=== PATIENT | female | born 1995 | race African-American/Black ===

== ENCOUNTER 2017-04-02 10:00 | Emergency (ER) | payer SELFPAY ==
[~2017-04-02] VITALS: Ht 170.2 cm; Wt 97.6 kg
[~2017-04-02 10:00] MED LIST: ADVAIR DISK1 IN; AZITHROMYCIN500 MG PO; CEPHALEXIN500 M1 OR; COLACE100 MG PO; EPIPEN0.3 MG IM; MEDDOSEPAK OR; PRENATAL1 TA1 PO; PROAIR HFA IN; PROVENTIL IN; PROVENTIL INH17 GM IN; SINGULAIR OR; STEROID; ZOFRAN4 M1 PO
[2017-04-02 11:19] VITALS: BP 121/66
== END 2017-04-02 11:19 | disposition home or self-care (01) | DRG 923 ==
LOC: ED 10:00
DX: T78.1XXA Other adverse food reactions, not elsewhere classified, initial encounter (principal); R42 Dizziness and giddiness; X58.XXXA Exposure to other specified factors, initial encounter

== ENCOUNTER 2017-10-14 14:19 | Emergency (ER) | payer SELFPAY ==
[~2017-10-14] VITALS: Ht 170.2 cm; Wt 98.6 kg
[2017-10-14 15:50] LABS: INFLUENZA A NONE DETECTED (NONE DETECT); INFLUENZA B NONE DETECTED (NONE DETECT)
[2017-10-14] MEDS ORDERED: ZITHROMAX500 MG PO (15:56)
[2017-10-14 16:13] VITALS: BP 125/73
== END 2017-10-14 16:13 | disposition home or self-care (01) | DRG 153 ==
LOC: ED 14:19
DX: J02.0 Streptococcal pharyngitis (principal)

== ENCOUNTER 2017-11-06 22:14 | Emergency (ER) | payer SELFPAY ==
[~2017-11-06] VITALS: Ht 170.2 cm; Wt 102.0 kg
[~2017-11-06 22:14] MED LIST changes: +ZITHROMAX500 MG PO
[2017-11-06] MEDS ORDERED: CLINDAMYCIN300 M1 PO ×2 (23:25→23:31)
[2017-11-06 23:40] VITALS: BP 127/69
== END 2017-11-06 23:40 | disposition home or self-care (01) | DRG 153 ==
LOC: ED 22:14
DX: J02.0 Streptococcal pharyngitis (principal)

== ENCOUNTER 2018-03-21 23:17 | Emergency (ER) | payer OTHER ==
[~2018-03-21] VITALS: Ht 170.2 cm; Wt 101.0 kg
[~2018-03-21 23:17] MED LIST changes: +CLINDAMYCIN300 M1 PO
[2018-03-21] MEDS ORDERED: PRE-NATAL PO (23:30)
[2018-03-22 00:04] LABS: HEMATOCRIT 28.6 % (37.0-47.0); HEMOGLOBIN 9.4 g/dl (12.0-16.0); IMMATURE GRANULOCYTES 0.3 % (0.0-5.0); MEAN CELL VOLUME 81.9 fL CALC (80.0-100.0); MEAN CORPUSCULAR HGB 26.9 pG CALC (26.0-32.0); MEAN CORPUSCULAR HGB CONC 32.9 g/L CALC (32.0-36.0); NEUT# 5.46 thou/uL (2.00-7.15); RED BLOOD COUNT 3.49 mill/uL (4.20-5.60); RED CELL DISTRI WIDTH 14.2 % (11.5-15.5)
[2018-03-22 00:16] LABS: ALBUMIN 3.5 g/dL (3.2-5.0); ALKALINE PHOSPHATASE 55 u/l (38-126); ANION GAP 13 (6-22 (CALC)); BILIRUBIN, TOTAL 0.3 mg/dL (0.0-1.4); BUN 5 mg/dL (7-17); BUN/CREATININE RATIO 11 (12-20 (CALC)); CARBON DIOXIDE 23 mmol/l (22-30); CHLORIDE 105 mmol/l (95-108); CREATININE 0.5 mg/dL (0.5-1.0); GFR > 60 ML/MIN (>=60 (CALC)); GFR FOR AFR.AMER. > 60 ML/MIN (>=60 (CALC)); POTASSIUM 3.1 mmol/l (3.5-5.1); SGOT/AST 12 u/l (14-36); SODIUM 138 mmol/l (137-146)
[2018-03-22 00:20] LABS: URINE BILIRUBIN - DIPSTICK NEGATIVE (NEGATIVE); URINE BLOOD DIPSTICK NEGATIVE (NEGATIVE); URINE COLOR YELLOW; URINE GLUCOSE - DIPSTICK NEGATIVE (NEGATIVE); URINE KETONE NEGATIVE (NEGATIVE); URINE LEUK ESTERASE NEGATIVE (NEGATIVE); URINE NITRITE - DIPSTICK NEGATIVE (Negative); URINE PH 6.5 (4.5-8.0); URINE PROTEIN - DIPSTICK NEGATIVE (NEG-TRACE)
[2018-03-22 00:22] LABS: URINE CLARITY CLEAR
[2018-03-22 01:00] LABS: BETA-HCG, QUANT(RESULT NUMBER) 44875 mIU/mL
[2018-03-22 01:26] VITALS: BP 129/83
== END 2018-03-22 01:29 | disposition home or self-care (01) ==
LOC: ED 23:17
PROVIDERS: Family Medicine
DX: O46.92 Antepartum hemorrhage, unspecified, second trimester (principal); O99.512 Diseases of the respiratory system complicating pregnancy, second trimester; J45.909 Unspecified asthma, uncomplicated; Z3A.16 16 weeks gestation of pregnancy

== ENCOUNTER 2018-04-18 04:22 | Emergency (ER) | payer OTHER ==
[~2018-04-18] VITALS: Ht 170.2 cm; Wt 100.4 kg
[~2018-04-18 04:22] MED LIST changes: +PRE-NATAL PO
[2018-04-18] MEDS ORDERED: ZPAK PO (04:49)
[2018-04-18 04:53] VITALS: BP 131/76
== END 2018-04-18 04:53 | disposition home or self-care (01) ==
LOC: ED 04:22
DX: O99.519 Diseases of the respiratory system complicating pregnancy, unspecified trimester (principal); J02.9 Acute pharyngitis, unspecified; J45.909 Unspecified asthma, uncomplicated; Z3A.00 Weeks of gestation of pregnancy not specified; R05 Cough; R09.81 Nasal congestion; R50.9 Fever, unspecified

== ENCOUNTER 2019-01-11 08:35 | Emergency (ER) | payer OTHER ==
[~2019-01-11] VITALS: Ht 170.2 cm; Wt 90.0 kg
[~2019-01-11 08:35] MED LIST changes: +ZPAK PO
[2019-01-11 09:16] LABS: HEMOGLOBIN 10.9 g/dl (12.0-16.0); IMMATURE GRANULOCYTES 0.3 % (0.0-5.0); MEAN CELL VOLUME 84.6 fL CALC (80.0-100.0); MEAN CORPUSCULAR HGB 27.1 pG CALC (26.0-32.0); MEAN CORPUSCULAR HGB CONC 32.1 g/L CALC (32.0-36.0); NEUT# 4.27 thou/uL (2.00-7.15); RED BLOOD COUNT 4.02 mill/uL (4.20-5.60); RED CELL DISTRI WIDTH 15.1 % (11.5-15.5)
[2019-01-11 09:25] LABS: URINE BILIRUBIN - DIPSTICK NEGATIVE (NEGATIVE); URINE BLOOD DIPSTICK NEGATIVE (NEGATIVE); URINE COLOR YELLOW; URINE GLUCOSE - DIPSTICK NEGATIVE (NEGATIVE); URINE KETONE NEGATIVE (NEGATIVE); URINE LEUK ESTERASE NEGATIVE (NEGATIVE); URINE NITRITE - DIPSTICK NEGATIVE (Negative); URINE PROTEIN - DIPSTICK NEGATIVE (NEG-TRACE); URINE SPECIFIC GRAVITY 1.015
[2019-01-11 09:25] LABS: ALBUMIN 4.1 g/dL (3.2-5.0); ALKALINE PHOSPHATASE 67 u/l (38-126); BUN 9 mg/dL (7-17); BUN/CREATININE RATIO 17 (12-20 (CALC)); CARBON DIOXIDE 25 mmol/l (22-30); CHLORIDE 107 mmol/l (95-108); CREATININE 0.6 mg/dL (0.5-1.0); GFR > 60 ML/MIN (>=60 (CALC)); GFR FOR AFR.AMER. > 60 ML/MIN (>=60 (CALC)); LIPASE 88 u/l (23-300); SGOT/AST 18 u/l (14-36); SODIUM 139 mmol/l (137-146); TOTAL PROTEIN 7.8 g/dL (6.3-8.2)
[2019-01-11 09:27] LABS: ANION GAP 11 (6-22 (CALC)); BILIRUBIN, TOTAL 1.3 mg/dL (0.0-1.4); POTASSIUM 4.1 mmol/l (3.5-5.1)
[2019-01-11 11:50] VITALS: BP 121/64
== END 2019-01-11 11:50 | disposition home or self-care (01) ==
LOC: ED 08:35
PROVIDERS: Family Medicine
DX: O26.899 Other specified pregnancy related conditions, unspecified trimester (principal); R10.31 Right lower quadrant pain; Z3A.00 Weeks of gestation of pregnancy not specified

== ENCOUNTER 2019-02-02 07:53 | Emergency (ER) | payer OTHER ==
[~2019-02-02] VITALS: Ht 170.2 cm; Wt 70.0 kg
[2019-02-02 08:34] LABS: HEMATOCRIT 33.3 % (37.0-47.0); HEMOGLOBIN 10.6 g/dl (12.0-16.0); IMMATURE GRANULOCYTES 0.4 % (0.0-5.0); MEAN CELL VOLUME 85.6 fL CALC (80.0-100.0); MEAN CORPUSCULAR HGB 27.2 pG CALC (26.0-32.0); MEAN CORPUSCULAR HGB CONC 31.8 g/L CALC (32.0-36.0); NEUT# 5.91 thou/uL (2.00-7.15); RED BLOOD COUNT 3.89 mill/uL (4.20-5.60); RED CELL DISTRI WIDTH 14.7 % (11.5-15.5)
[2019-02-02 08:34] LABS: URINE BILIRUBIN - DIPSTICK NEGATIVE (NEGATIVE); URINE BLOOD DIPSTICK NEGATIVE (NEGATIVE); URINE COLOR YELLOW; URINE GLUCOSE - DIPSTICK NEGATIVE (NEGATIVE); URINE KETONE NEGATIVE (NEGATIVE); URINE LEUK ESTERASE NEGATIVE (NEGATIVE); URINE NITRITE - DIPSTICK NEGATIVE (Negative); URINE PH 6.5 (4.5-8.0); URINE PROTEIN - DIPSTICK NEGATIVE (NEG-TRACE); URINE SPECIFIC GRAVITY 1.015
[2019-02-02 08:49] LABS: ANION GAP 10 (6-22 (CALC)); BUN 7 mg/dL (7-17); BUN/CREATININE RATIO 13 (12-20 (CALC)); CARBON DIOXIDE 27 mmol/l (22-30); CHLORIDE 104 mmol/l (95-108); CREATININE 0.5 mg/dL (0.5-1.0); GFR > 60 ML/MIN (>=60 (CALC)); GFR FOR AFR.AMER. > 60 ML/MIN (>=60 (CALC)); POTASSIUM 3.7 mmol/l (3.5-5.1); SODIUM 138 mmol/l (137-146)
[2019-02-02 09:08] LABS: BETA-HCG, QUANT(RESULT NUMBER) > 15000 mIU/mL
[2019-02-02 11:40] VITALS: BP 138/60
== END 2019-02-02 11:40 | disposition home or self-care (01) ==
LOC: ED 07:53
PROVIDERS: Family Medicine
DX: O26.851 Spotting complicating pregnancy, first trimester (principal); Z3A.01 Less than 8 weeks gestation of pregnancy; R10.2 Pelvic and perineal pain; R10.32 Left lower quadrant pain
CPT/HCPCS: J2790

== ENCOUNTER 2019-03-05 02:00 | Emergency (ER) | payer OTHER ==
[~2019-03-05] VITALS: Ht 170.2 cm; Wt 95.0 kg
[2019-03-05 02:37] LABS: HEMATOCRIT 33.4 % (37.0-47.0); IMMATURE GRANULOCYTES 0.3 % (0.0-5.0); MEAN CELL VOLUME 84.6 fL CALC (80.0-100.0); MEAN CORPUSCULAR HGB 27.8 pG CALC (26.0-32.0); MEAN CORPUSCULAR HGB CONC 32.9 g/L CALC (32.0-36.0); RED BLOOD COUNT 3.95 mill/uL (4.20-5.60); RED CELL DISTRI WIDTH 13.6 % (11.5-15.5)
[2019-03-05 02:38] LABS: URINE BILIRUBIN - DIPSTICK NEGATIVE (NEGATIVE); URINE BLOOD DIPSTICK NEGATIVE (NEGATIVE); URINE COLOR YELLOW; URINE GLUCOSE - DIPSTICK NEGATIVE (NEGATIVE); URINE KETONE NEGATIVE (NEGATIVE); URINE LEUK ESTERASE NEGATIVE (NEGATIVE); URINE NITRITE - DIPSTICK NEGATIVE (Negative); URINE PROTEIN - DIPSTICK NEGATIVE (NEG-TRACE); URINE SPECIFIC GRAVITY >=1.030
[2019-03-05 02:49] LABS: ALBUMIN 4.1 g/dL (3.2-5.0); ALKALINE PHOSPHATASE 63 u/l (38-126); ANION GAP 14 (6-22 (CALC)); BUN 7 mg/dL (7-17); BUN/CREATININE RATIO 17 (12-20 (CALC)); CARBON DIOXIDE 23 mmol/l (22-30); CHLORIDE 105 mmol/l (95-108); CREATININE 0.4 mg/dL (0.5-1.0); GFR > 60 ML/MIN (>=60 (CALC)); GFR FOR AFR.AMER. > 60 ML/MIN (>=60 (CALC)); POTASSIUM 3.6 mmol/l (3.5-5.1); SGOT/AST 16 u/l (14-36); SODIUM 138 mmol/l (137-146); TOTAL PROTEIN 7.8 g/dL (6.3-8.2)
[2019-03-05 02:58] LABS: BILIRUBIN, TOTAL 0.6 mg/dL (0.0-1.4)
[2019-03-05 03:31] LABS: BETA-HCG, QUANT(RESULT NUMBER) 100220 mIU/mL
[2019-03-05 03:56] VITALS: BP 122/67
== END 2019-03-05 03:56 | disposition home or self-care (01) ==
LOC: ED 02:00
PROVIDERS: Family Medicine
DX: O26.899 Other specified pregnancy related conditions, unspecified trimester (principal); R10.31 Right lower quadrant pain; R10.32 Left lower quadrant pain; Z3A.00 Weeks of gestation of pregnancy not specified

== ENCOUNTER 2019-03-07 19:49 | Emergency (ER) | payer OTHER ==
[~2019-03-07] VITALS: Ht 170.2 cm; Wt 90.0 kg
[2019-03-07 19:52] VITALS: BP 129/70
[2019-03-07] MEDS ORDERED: PRENATAL1 TA1 PO (19:58)
[2019-03-07] MEDS ORDERED: IRON325 M1 PO (19:58)
== END 2019-03-07 20:40 | disposition home or self-care (01) | DRG 833 ==
LOC: ED 19:49
DX: O9A.212 Injury, poisoning and certain other consequences of external causes complicating pregnancy, second trimester (principal); S09.8XXA Other specified injuries of head, initial encounter; V48.5XXA Car driver injured in noncollision transport accident in traffic accident, initial encounter; Z3A.14 14 weeks gestation of pregnancy

== ENCOUNTER 2019-05-30 21:24 | Emergency (ER) | payer OTHER ==
[~2019-05-30] VITALS: Ht 167.6 cm; Wt 96.3 kg
[~2019-05-30 21:24] MED LIST changes: +IRON325 M1 PO
[2019-05-30] MEDS ORDERED: TAM75CAP PO (21:48)
[2019-05-30 22:40] VITALS: BP 119/59
== END 2019-05-30 22:45 | disposition home or self-care (01) ==
LOC: ED 21:24
DX: J11.1 Influenza due to unidentified influenza virus with other respiratory manifestations (principal)

== ENCOUNTER 2019-06-17 | Emergency (ER) | payer OTHER ==
[~2019-06-17] MED LIST changes: +TAM75CAP PO
== END 2019-06-17 02:52 | disposition home or self-care (01) ==
DX: L03.011 Cellulitis of right finger (principal); Z88.0 Allergy status to penicillin; Z33.1 Pregnant state, incidental

== ENCOUNTER 2019-08-23 | Emergency (ER) | payer OTHER ==
[2019-08-23 02:56] LABS: URINE BILIRUBIN - DIPSTICK NEGATIVE (NEGATIVE); URINE BLOOD DIPSTICK NEGATIVE (NEGATIVE); URINE COLOR YELLOW; URINE GLUCOSE - DIPSTICK NEGATIVE (NEGATIVE); URINE KETONE NEGATIVE (NEGATIVE); URINE LEUK ESTERASE NEGATIVE (NEGATIVE); URINE NITRITE - DIPSTICK NEGATIVE (Negative); URINE PH 7.5 (4.5-8.0); URINE PROTEIN - DIPSTICK NEGATIVE (NEG-TRACE); URINE SPECIFIC GRAVITY 1.025
== END 2019-08-23 03:35 ==
PROVIDERS: Emergency Medicine
DX: O26.893 Other specified pregnancy related conditions, third trimester (principal); M54.5 Low back pain; Z3A.37 37 weeks gestation of pregnancy

== ENCOUNTER 2019-08-24 | Emergency (ER) | payer OTHER | END 2019-08-25 01:50 | disposition home or self-care (01) | DX: O99.513 Diseases of the respiratory system complicating pregnancy, third trimester (principal); J06.9 Acute upper respiratory infection, unspecified; Z3A.37 37 weeks gestation of pregnancy ==

== ENCOUNTER 2020-01-14 01:48 | Emergency (ER) | payer OTHER ==
[~2020-01-14] VITALS: Ht 170.2 cm; Wt 95.9 kg
[2020-01-14] MEDS ORDERED: SUPRAX PO ×2 (02:40)
[2020-01-14 03:20] VITALS: BP 146/66
== END 2020-01-14 03:35 | disposition home or self-care (01) ==
LOC: ED 01:48
DX: J32.9 Chronic sinusitis, unspecified (principal); J45.909 Unspecified asthma, uncomplicated; Z88.0 Allergy status to penicillin; Z20.828 Contact with and (suspected) exposure to other viral communicable diseases

== ENCOUNTER 2020-02-10 07:39 | Emergency (ER) | payer OTHER ==
[~2020-02-10] VITALS: Ht 170.2 cm; Wt 105.0 kg
[~2020-02-10 07:39] MED LIST changes: +SUPRAX PO
[2020-02-10] MEDS ORDERED: PRENATAL1 TA1 PO (07:53)
[2020-02-10] MEDS ORDERED: VITAMIN C500 M4 PO (07:54)
[2020-02-10 08:14] LABS: HEMATOCRIT 32.1 % (37.0-47.0); HEMOGLOBIN 9.6 g/dl (12.0-16.0); IMMATURE GRANULOCYTES 0.3 % (0.0-5.0); MEAN CELL VOLUME 78.1 fL CALC (80.0-100.0); MEAN CORPUSCULAR HGB 23.4 pG CALC (26.0-32.0); MEAN CORPUSCULAR HGB CONC 29.9 g/dL CAL (32.0-36.0); NEUT# 4.36 thou/uL (2.00-7.15); RED BLOOD COUNT 4.11 mill/uL (4.20-5.60); RED CELL DISTRI WIDTH 16.7 % (11.5-15.5)
[2020-02-10 08:31] LABS: PROTHROMBIN TIME 9.8 SECONDS (9.0-12.5)
[2020-02-10 08:33] LABS: ALKALINE PHOSPHATASE 85 u/l (38-126); BILIRUBIN, TOTAL 0.8 mg/dL (0.0-1.4); BUN 12 mg/dL (7-17); BUN/CREATININE RATIO 18 (12-20 (CALC)); CHLORIDE 104 mmol/l (95-108); CREATININE 0.6 mg/dL (0.5-1.0); GFR > 60 ML/MIN (>=60 (CALC)); GFR FOR AFR.AMER. > 60 ML/MIN (>=60 (CALC)); POTASSIUM 4.1 mmol/l (3.5-5.1); SGOT/AST 23 u/l (14-36); SODIUM 137 mmol/l (137-146); TOTAL PROTEIN 7.8 g/dL (6.3-8.2)
[2020-02-10 08:40] LABS: ANION GAP 9 (6-22 (CALC)); CARBON DIOXIDE 28 mmol/l (22-30)
[2020-02-10 08:55] LABS: URINE BILIRUBIN - DIPSTICK NEGATIVE (NEGATIVE); URINE BLOOD DIPSTICK NEGATIVE (NEGATIVE); URINE COLOR YELLOW; URINE GLUCOSE - DIPSTICK NEGATIVE (NEGATIVE); URINE KETONE NEGATIVE (NEGATIVE); URINE LEUK ESTERASE NEGATIVE (NEGATIVE); URINE NITRITE - DIPSTICK NEGATIVE (Negative); URINE PROTEIN - DIPSTICK NEGATIVE (NEG-TRACE); URINE SPECIFIC GRAVITY 1.015
[2020-02-10 09:43] VITALS: BP 140/71
== END 2020-02-10 10:02 | disposition home or self-care (01) ==
LOC: ED 07:39
PROVIDERS: Student in an Organized Health Care Education/Training Program
DX: R53.1 Weakness (principal); D50.9 Iron deficiency anemia, unspecified

== ENCOUNTER 2020-03-16 15:45 | Emergency (ER) | payer OTHER ==
[~2020-03-16] VITALS: Ht 170.2 cm; Wt 100.0 kg
[~2020-03-16 15:45] MED LIST changes: +VITAMIN C500 M4 PO
[2020-03-16 16:34] LABS: HEMATOCRIT 34.5 % (37.0-47.0); HEMOGLOBIN 10.6 g/dl (12.0-16.0); IMMATURE GRANULOCYTES 0.3 % (0.0-5.0); MEAN CELL VOLUME 79.7 fL CALC (80.0-100.0); MEAN CORPUSCULAR HGB 24.5 pG CALC (26.0-32.0); MEAN CORPUSCULAR HGB CONC 30.7 g/dL CAL (32.0-36.0); NEUT# 4.21 thou/uL (2.00-7.15); RED BLOOD COUNT 4.33 mill/uL (4.20-5.60); RED CELL DISTRI WIDTH 15.9 % (11.5-15.5)
[2020-03-16 16:48] LABS: ALBUMIN 4.3 g/dL (3.2-5.0); ALKALINE PHOSPHATASE 80 u/l (38-126); ANION GAP 10 (6-22 (CALC)); BILIRUBIN, TOTAL 0.6 mg/dL (0.0-1.4); BUN 7 mg/dL (7-17); BUN/CREATININE RATIO 11 (12-20 (CALC)); CARBON DIOXIDE 28 mmol/l (22-30); CHLORIDE 104 mmol/l (95-108); CREATININE 0.6 mg/dL (0.5-1.0); GFR > 60 ML/MIN (>=60 (CALC)); GFR FOR AFR.AMER. > 60 ML/MIN (>=60 (CALC)); POTASSIUM 3.9 mmol/l (3.5-5.1); SGOT/AST 22 u/l (14-36); SODIUM 138 mmol/l (137-146); TOTAL PROTEIN 8.7 g/dL (6.3-8.2)
[2020-03-16 16:59] LABS: PROTHROMBIN TIME 9.5 SECONDS (9.0-12.5)
[2020-03-16 17:14] LABS: URINE BILIRUBIN - DIPSTICK NEGATIVE (NEGATIVE); URINE BLOOD DIPSTICK NEGATIVE (NEGATIVE); URINE COLOR YELLOW; URINE GLUCOSE - DIPSTICK NEGATIVE (NEGATIVE); URINE KETONE NEGATIVE (NEGATIVE); URINE LEUK ESTERASE NEGATIVE (NEGATIVE); URINE NITRITE - DIPSTICK NEGATIVE (Negative); URINE PH 6.5 (4.5-8.0); URINE PROTEIN - DIPSTICK NEGATIVE (NEG-TRACE); URINE SPECIFIC GRAVITY >=1.030
[2020-03-16 18:35] VITALS: BP 116/59
== END 2020-03-16 18:35 | disposition home or self-care (01) ==
LOC: ED 15:45
PROVIDERS: Student in an Organized Health Care Education/Training Program
DX: R55 Syncope and collapse (principal); C95.90 Leukemia, unspecified not having achieved remission; J45.909 Unspecified asthma, uncomplicated

== ENCOUNTER 2020-03-22 12:11 | Emergency (ER) | payer OTHER ==
[~2020-03-22] VITALS: Ht 170.2 cm; Wt 100.0 kg
[2020-03-22 13:21] LABS: HEMATOCRIT 35.2 % (37.0-47.0); HEMOGLOBIN 10.7 g/dl (12.0-16.0); IMMATURE GRANULOCYTES 0.2 % (0.0-5.0); MEAN CELL VOLUME 80.7 fL CALC (80.0-100.0); MEAN CORPUSCULAR HGB 24.5 pG CALC (26.0-32.0); MEAN CORPUSCULAR HGB CONC 30.4 g/dL CAL (32.0-36.0); NEUT# 5.67 thou/uL (2.00-7.15); RED BLOOD COUNT 4.36 mill/uL (4.20-5.60); RED CELL DISTRI WIDTH 15.7 % (11.5-15.5)
[2020-03-22 13:21] LABS: URINE BILIRUBIN - DIPSTICK NEGATIVE (NEGATIVE); URINE BLOOD DIPSTICK NEGATIVE (NEGATIVE); URINE COLOR YELLOW; URINE GLUCOSE - DIPSTICK NEGATIVE (NEGATIVE); URINE KETONE NEGATIVE (NEGATIVE); URINE LEUK ESTERASE NEGATIVE (NEGATIVE); URINE NITRITE - DIPSTICK NEGATIVE (Negative); URINE PH 7.5 (4.5-8.0); URINE PROTEIN - DIPSTICK NEGATIVE (NEG-TRACE); URINE SPECIFIC GRAVITY 1.015
[2020-03-22 13:39] LABS: ALBUMIN 4.2 g/dL (3.2-5.0); ALKALINE PHOSPHATASE 81 u/l (38-126); ANION GAP 12 (6-22 (CALC)); BILIRUBIN, TOTAL 0.6 mg/dL (0.0-1.4); BUN 10 mg/dL (7-17); BUN/CREATININE RATIO 14 (12-20 (CALC)); CARBON DIOXIDE 27 mmol/l (22-30); CHLORIDE 103 mmol/l (95-108); CREATININE 0.7 mg/dL (0.5-1.0); GFR > 60 ML/MIN (>=60 (CALC)); GFR FOR AFR.AMER. > 60 ML/MIN (>=60 (CALC)); POTASSIUM 3.8 mmol/l (3.5-5.1); SGOT/AST 18 u/l (14-36); SODIUM 138 mmol/l (137-146); TOTAL PROTEIN 8.3 g/dL (6.3-8.2)
[2020-03-22] MEDS ORDERED: LORTAB 1010 MG PO (14:10)
[2020-03-22] MEDS ORDERED: CIPROFLOXACN500 MG PO (14:10)
[2020-03-22] MEDS ORDERED: FLOXIN OTIC0.3 % AS (14:10)
[2020-03-22 14:27] VITALS: BP 131/67
== END 2020-03-22 14:27 | disposition home or self-care (01) ==
LOC: ED 12:11
PROVIDERS: Emergency Medicine
DX: H66.92 Otitis media, unspecified, left ear (principal); R20.0 Anesthesia of skin; R51.9 Headache, unspecified; J45.909 Unspecified asthma, uncomplicated; C95.90 Leukemia, unspecified not having achieved remission

== ENCOUNTER 2020-04-02 20:58 | Emergency (ER) | payer OTHER ==
[~2020-04-02] VITALS: Ht 170.2 cm; Wt 98.0 kg
[~2020-04-02 20:58] MED LIST changes: +CIPROFLOXACN500 MG PO; +FLOXIN OTIC0.3 % AS; +LORTAB 1010 MG PO
[2020-04-02] MEDS ORDERED: CORTISPORIN OTI10 M2 AS (21:20)
[2020-04-02] MEDS ORDERED: TYLENOL # 31 TA1 PO (21:20)
[2020-04-02] MEDS ORDERED: LEVAQUIN750 M1 PO (21:20)
[2020-04-02 22:05] VITALS: BP 117/57
== END 2020-04-02 22:05 | disposition home or self-care (01) ==
LOC: ED 20:58
DX: H60.92 Unspecified otitis externa, left ear (principal); J45.909 Unspecified asthma, uncomplicated; C95.90 Leukemia, unspecified not having achieved remission

== ENCOUNTER 2023-03-10 16:55 | Emergency (ER) | payer MEDICAID ==
[2023-03-10] VITALS (12 sets, daily range): BP systolic 113–135; BP diastolic 58–83
[~2023-03-10] VITALS: Ht 170.2 cm; Wt 113.3 kg
[~2023-03-10 16:55] MED LIST changes: +CORTISPORIN OTI10 M2 AS; +LEVAQUIN750 M1 PO; +TYLENOL # 31 TA1 PO
[2023-03-10 17:38] LABS: BASO% 0.4 % (0-3); EOS% 0.6 % (0-8); IMMATURE GRANULOCYTES 0.1 % (0.0-5.0); MEAN CORPUSCULAR HGB 19.7 pG CALC (26.0-32.0); MONO% 5.2 % (2-13); NEUT# 8.68 thou/uL (2.00-7.15); NEUT% 71.7 % (42-76); RED BLOOD COUNT 4.01 mill/uL (4.20-5.60); RED CELL DISTRI WIDTH 19.7 % (11.5-15.5)
[2023-03-10 17:40] LABS: HEMATOCRIT 27.2 % (37.0-47.0); HEMOGLOBIN 7.9 g/dl (12.0-16.0); MEAN CELL VOLUME 67.8 fL CALC (80.0-100.0)
[2023-03-10 17:53] LABS: ALBUMIN 4.1 g/dL (3.2-5.0); ALKALINE PHOSPHATASE 61 u/l (38-126); ANION GAP 10 (6-22 (CALC)); BILIRUBIN, TOTAL 0.7 mg/dL (0.02-1.3); BUN 8 mg/dL (7-17); BUN/CREATININE RATIO 11 (12-20 (CALC)); CARBON DIOXIDE 26 mmol/l (22-30); CHLORIDE 103 mmol/l (95-108); CREATININE 0.7 mg/dL (0.5-1.0); GFR FOR AFR.AMER. > 60 ML/MIN (>=60 (CALC)); GFR OTHER RACES > 60 ML/MIN (>=60 (CALC)); POTASSIUM 3.5 mmol/l (3.5-5.1); SODIUM 136 mmol/l (137-146); TOTAL PROTEIN 8.6 g/dL (6.3-8.2)
[2023-03-10 17:54] LABS: SGOT/AST 35 u/l (14-36)
[2023-03-10 18:26] LABS: TSH, 3RD GENERATION 3.26 uIU/mL (0.47 - 4.68)
[2023-03-10 18:29] LABS: URINE BILIRUBIN - DIPSTICK Negative (NEGATIVE); URINE BLOOD DIPSTICK Negative (NEGATIVE); URINE GLUCOSE - DIPSTICK Negative (NEGATIVE); URINE KETONE Negative (NEGATIVE); URINE LEUK ESTERASE Negative (NEGATIVE); URINE NITRITE - DIPSTICK Negative (Negative); URINE PH 6.5 (4.5-8.0); URINE PROTEIN - DIPSTICK Negative (NEG-TRACE)
[2023-03-10 18:31] LABS: URINE COLOR Yellow
[2023-03-10] MEDS ORDERED: FERROUS SULF325 M3 PO (18:32)
== END 2023-03-10 19:58 | disposition home or self-care (01) ==
LOC: ED 16:55
PROVIDERS: Family Medicine
DX: D50.9 Iron deficiency anemia, unspecified (principal); E66.9 Obesity, unspecified; J45.909 Unspecified asthma, uncomplicated; T45.4X6A Underdosing of iron and its compounds, initial encounter; Z91.128 Patient's intentional underdosing of medication regimen for other reason